=== PATIENT | female | born 1930 | race Two or more races ===

== ENCOUNTER 2017-10-30 20:48 | Emergency (ER) | payer MEDICARE ==
[~2017-10-30] VITALS: Ht 149.9 cm; Wt 48.7 kg
[2017-10-30 20:51] VITALS: BP 163/72; PULSE 64; RESP 18; TEMP 97.5; O2SAT 98
[2017-10-30] MEDS ORDERED: OMEP20TA93 PO (21:11)
[2017-10-30] MEDS ORDERED: LISI40TA PO (21:11)
[2017-10-30] MEDS ORDERED: AMLO5TAB2 PO (21:11)
[2017-10-30] MEDS ORDERED: TRAM50TA PO (21:11)
--- NOTE | 2017-10-30 22:01 | RADRPT ---
EXAM DATE/TIME: 10/30/2017 21:25 [facility] COMPARISON: No previous studies available for comparison. INDICATIONS : Post fall two weeks ago. Pain in upper ribs radiating down left arm. MEDICAL HISTORY : Gastroesophageal reflux disease. SURGICAL HISTORY : None. ENCOUNTER: Initial ACUITY: 2 weeks PAIN SCORE: 6/10 LOCATION: Left Humerus FINDINGS: Two view examination of the left humerus demonstrates no evidence of fracture or dislocation. Bony m ineralization is normal. The soft tissue structures are intact. CONCLUSION: No acute disease. Harinder Estrada MD on October 30, 2017 at 21:59 Board Certified Radiologist. This report was verified electronically.
--- NOTE | 2017-10-30 22:05 | RADRPT ---
EXAM DATE/TIME: 10/30/2017 21:07 [facility] COMPARISON: No previous studies available for comparison. INDICATIONS : Post fall two weeks ago. MEDICAL HISTORY : Gastroesophageal reflux disease. SURGICAL HISTORY : None. ENCOUNTER: Initial ACUITY: 2 weeks PAIN SCORE: 6/10 LOCATION: Left Upper ribs FINDINGS: No left rib fracture is noted. No pneumothorax is noted. The heart is prominent in the lungs are kelly r. There is a "high-riding" right humeral head indicating rotator cuff pathology on the right. Modera te osteoarthritis is also noted involving right shoulder. Degenerative changes and scoliosis of the t horacolumbar spine are noted. CONCLUSION: 1. No evidence of left rib fracture. 2. Mild cardiomegaly. 3. "High-riding" right humeral head indicating rotator cuff pathology on the right. 4. 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 5. Degenerative changes and scoliosis of the thoracolumbar spine are noted. Harinder Estrada MD on October 30, 2017 at 22:00 Board Certified Radiologist. This report was verified electronically.
--- NOTE | 2017-10-30 22:24 | PD ---
HPI . Upper back pain Chief Complaint: Musculoskeletal Complaint Time Seen by Provider: 20:59 Travel History International Travel<30 days: No Contact w/Intl Traveler<30days: No Traveled to known affect area: No History of Present Illness HPI Patient presents with chief complaint of upper back pain following a fall 2 weeks ago. She states that she did have a lot of bruising to her back and left side of her face. That has cleared up. However, she has continued to have pain. Tylenol and Ultram to help the pain some. She rates the pain at 7-8/10. PFSH Past Medical History Arthritis: Yes GERD: Yes Tetanus Vaccination: Unknown Influenza Vaccination: Yes Social History Alcohol Use: No Tobacco Use: No Substance Use: No Allergies-Medications (Allergen,Severity, Reaction): Coded Allergies: aspirin (Verified Allergy, Unknown, 10/30/17) Reported Meds & Prescriptions Reported Meds & Active Scripts Active Reported Tramadol (Tramadol HCl) 50 Mg Tab 50 Mg PO Q6H PRN Lisinopril 40 Mg Tab 40 Mg PO DAILY Amlodipine (Amlodipine Besylate) 5 Mg Tab 5 Mg PO DAILY Omeprazole 20 Mg Tab 20 Mg PO DAILY Review of Systems Except as stated in HPI: all other systems reviewed are Neg Respiratory: No: Shortness of Breath Physical Exam Narrative GENERAL: Awake and alert and in no acute distress. SKIN: Warm and dry. HEAD: Normocephalic/atraumatic. EYES: Pupils are equal. Extraocular movements are intact. NECK: Normal range of motion. CARDIOVASCULAR: Regular rate and rhythm. RESPIRATORY: Nonlabored respirations. Breath sounds are full and equal. MUSCULOSKELETAL: Atraumatic. She has some tenderness to palpation in the left upper anterior posterior rib cage area. That is, she is tender between her left scapula and the eye. She is complaining with arm and shoulder pain but has full range of motion of her shoulder. NEUROLOGICAL: Nonfocal. PSYCHIATRIC: Appropriate mood and affect. Data Data Last Documented VS Vital Signs Date Time Temp Pulse Resp B/P (MAP) Pulse Ox O2 Delivery O2 Flow Rate FiO2 10/30/17 20:51 97.5 64 18 163/72 (102) 98 Orders Orders Ribs, Uni (W/Exp Cxr-Min 3vw) (10/30/17 21:05) Humerus (Min 2vws) (10/30/17 21:20) MDM Medical Decision Making Medical Screen Exam Complete: Yes Emergency Medical Condition: Yes Differential Diagnosis Differential diagnosis of extremity trauma includes but is not limited to fracture, sprain or strain, dislocation, contusion Narrative Course Patient presents for evaluation of injuries to the left upper back/shoulder area weeks ago. Last Impressions Humerus X-Ray 10/30/[id number] Signed Impressions: Service Date/Time: October 21:25 - CONCLUSION: No acute disease. Harinder Estrada MD Ribs X-Ray 10/30/[id number] Signed Impressions: Service Date/Time: , October 30, 2017 21:07 - CONCLUSION: 1. No evidence of left rib fracture. 2. Mild cardiomegaly. 3. High-riding right humeral head indicating rotator cuff pathology on the right. 4. 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 5. Degenerative changes and scoliosis of the thoracolumbar spine are noted. Harinder Estrada MD Diagnosis Primary Impression: Contusion of upper back Qualified Codes: S20.222A - Contusion of left back wall of thorax, initial encounter Additional Impression: Shoulder contusion Qualified Codes: S40.012A - Contusion of left shoulder, initial encounter Referrals: Primary Care Physician call for appointment Patient Instructions: Contusion in Adults (DC), General Instructions, RICE Therapy (ED) Departure Forms: Tests/Procedures Disposition: 01 DISCHARGE HOME Condition: Stable Brittany Kc MD Oct 30, 2017 22:24
== END 2017-10-30 22:32 | disposition home or self-care (01) ==
LOC: PHEFT 20:48
DX: S20.222A Contusion of left back wall of thorax, initial encounter (principal); S40.012A Contusion of left shoulder, initial encounter; W19.XXXA Unspecified fall, initial encounter
CPT/HCPCS: 71101; 73060; 99284

== ENCOUNTER 2017-12-25 09:02 | Emergency (ER) | payer MEDICARE ==
[~2017-12-25] VITALS: Ht 144.8 cm; Wt 48.0 kg
[~2017-12-25 09:02] MED LIST: AMLO5TAB2 PO; LISI40TA PO; OMEP20TA93 PO; TRAM50TA PO
[2017-12-25 09:06] VITALS: BP 130/63; PULSE 61; RESP 16; TEMP 97.9; O2SAT 98
--- NOTE | 2017-12-25 09:44 | PD ---
HPI Chief Complaint: Musculoskeletal Complaint Time Seen by Provider: 09:33 Travel History International Travel<30 days: No Contact w/Intl Traveler<30days: No Traveled to known affect area: No History of Present Illness HPI This 87-year-old female is complaining of pain in the back of her left arm. She 's been having pain since last Friday. It is fairly significant. She had trouble sleeping last night due to the pain. She was here on October 30 with complaint of pain in the same area. At that time she had fallen a few weeks before and had some bruising noted. She had x-rays of her ribs and humerus which were both negative her pain improved until a few days ago when it started again. There has been no recent trauma. She went for a manicure on Friday and says that she was in an uncomfortable position at that time. She is wondering if this pain might be related to a cardiac issue. PFSH Past Medical History Arthritis: Yes Diminished Hearing: No GERD: Yes Hypertension: Yes Influenza Vaccination: Yes ?: Not Social History Alcohol Use: No Tobacco Use: No Substance Use: No Allergies-Medications (Allergen,Severity, Reaction): Coded Allergies: aspirin (Verified Allergy, Severe, GI UPSET, 12/25/17) Reported Meds & Prescriptions Reported Meds & Active Scripts Active Reported Lisinopril 40 Mg Tab 40 Mg PO DAILY Amlodipine (Amlodipine Besylate) 5 Mg Tab 5 Mg PO DAILY Omeprazole 20 Mg Tab 20 Mg PO DAILY Review of Systems General / Constitutional: No: Fever, Chills Eyes: No: Diploplia, Blurred Vision HENT: No: Headaches Cardiovascular: No: Chest Pain or Discomfort, Palpitations Respiratory: No: Cough Gastrointestinal: No: Vomiting, Diarrhea Genitourinary: No: Urgency, Frequency Musculoskeletal: Positive: Myalgias, Pain Skin: No Rash Physical Exam Narrative GENERAL: Well-developed female SKIN: Focused skin assessment warm/dry. HEAD: Atraumatic. Normocephalic. EYES: Pupils equal and round. No scleral icterus. No injection or drainage. ENT: No nasal bleeding or discharge. Mucous membranes pink and moist. NECK: Trachea midline. No JVD. CARDIOVASCULAR: Regular rate and rhythm. No murmur appreciated. RESPIRATORY: No accessory muscle use. Clear to auscultation. Breath sounds equal bilaterally. MUSCULOSKELETAL: No obvious deformities. No clubbing. No cyanosis. No edema. He is no swelling or tenderness of the arm. It is not tender to palpation. Sensation of the arm is intact. Cut[employer] P[employer] are equal NEUROLOGICAL: Awake and alert. No obvious cranial nerve deficits. Motor grossly within normal limits. Normal speech. PSYCHIATRIC: Appropriate mood and affect; insight and judgment normal. Data Data Last Documented VS Vital Signs Date Time Temp Pulse Resp B/P (MAP) Pulse Ox O2 Delivery O2 Flow Rate FiO2 12/25/17 09:06 97.9 61 16 130/63 (85) 98 Orders Orders Electrocardiogram (12/25/17 09:41) [facility] Medical Decision Making Medical Screen Exam Complete: Yes Emergency Medical Condition: Yes Medical Record Reviewed: Yes Differential Diagnosis Differential includes myocardial ischemia, post traumatic pain, neuropathy Narrative Course EKG shows atrial flutter at a controlled rate of 60. We don't have any old EKGs on this patient but she says she had an EKG prior to coming here and was told it was normal. I don't think any intervention is warranted at this time. She is here with a friend who sees Dr. Ledesma and she says she'll take her to see Dr. Ledesma further evaluation. There are no signs of ischemia on EKG and I don't think this pain is related to cardiac ischemia. Etiology of the pain is not clear. It may be related to her previous trauma Diagnosis Primary Impression: Left upper arm pain Additional Impression: Atrial flutter with controlled response Disposition: 01 DISCHARGE HOME Condition: Stable Dale Benz MD Dec 25, 2017 09:44
--- NOTE | 2017-12-25 13:48 | EKG ---
Date Performed: 12/25/2017 Time Performed: 09:46:06 PTAGE: 87 years EKG: ATRIAL FLUTTER/TACHYCARDIA WITH SLOW VENTRICULAR RESPONSE LOW QRS VOLTAGE IN EXTREMITY LEAD S ABNORMAL RHYTHM ECG NO PREVIOUS TRACING DOCTOR: Nam Archibald Interpretating Date/Time 12/25/2017 13:47:18
== END 2017-12-25 10:23 | disposition home or self-care (01) ==
LOC: PHED 09:02
DX: M79.622 Pain in left upper arm (principal); I48.92 Unspecified atrial flutter
CPT/HCPCS: 93005; 99283